=== PATIENT | female | born 1935 | race Caucasian/White ===

== ENCOUNTER 2018-08-04 07:13 | Outpatient (CLI) | payer MEDICARE ==
[2018-08-04 07:40] LABS: TOTAL HEMOGLOBIN 16.6 G/dl (12.0-16.0)
== END 2018-08-04 23:59 | disposition home or self-care (01) ==
LOC: RT 07:13
PROVIDERS: ATTEND Internal Medicine
DX: R91.1 Solitary pulmonary nodule (principal); C34.90 Malignant neoplasm of unspecified part of unspecified bronchus or lung; I10 Essential (primary) hypertension; Z91.018 Allergy to other foods
CPT/HCPCS: 85018; 94010; 94727; 94729